=== PATIENT | male | born 1945 | race Caucasian/White ===

== ENCOUNTER 2021-01-04 09:08 | Observation (INO) ==
--- NOTE | 2020-11-23 16:11 | Anesthesiology Consultation ---
Date of Service November 23, 2020 Assessment & Plan (1) Encounter for pre-operative examination: Chart Review Chart Review: Acceptable Risk for Surgery (pending preop Covid testing and DOS CXR ) and Patient NOT seen in Pre Admission Testing - Check coags AM DOS. Will order repeat CXR DOS secondary chest CT findings in Aug 2020 to ensure no current infection. Per nursing assessment 11/23/20, pt did travel to [place] and returned home on 11/13/20- drove and avoided large crowds. Wears mask in public. No known Covid positive contacts or Covid related symptoms. No known Covid infection in the past 90 days. Preop Covid testing 12/02/20= will await results. History Surgery Operation Date: 12/08/20 10:40 Proposed Procedures p Left Total Hip Arthroplasty - Enrrique Boss MD Height/Weight Height: 5 ft 10 in Weight: 106.594 kg Allergies Allergy/AdvReac Type Severity Reaction Status Date / Time No Known Allergies Allergy Verified 11/23/20 13:51 Medications Home Medications Medication Instructions Recorded Confirmed Last Taken 3-in-1 Commode #1 ea 07/02/20 07/02/20 Unknown Wheeled Walker #1 ea 07/02/20 07/02/20 Unknown Wheeled Walker #1 ea 07/02/20 07/02/20 Unknown atorvastatin 10 mg PO PM 07/03/20 11/23/20 Unknown coenzyme Q10 [CoQ-10] 100 mg PO QAM 07/03/20 11/23/20 Unknown warfarin 5 mg PO PM 07/03/20 11/23/20 Unknown triamcinolone acetonide 1 applic TOPICAL DAILY PRN 11/23/20 11/23/20 Unknown Past Medical History Medical History Dyslipidemia Elevated factor VIII level Heterozygous MTHFR mutation [id number] History of COVID-19 06/2020 - asymptomatic History of DVT (deep vein thrombosis) LLE (2005), on warfarin, dx heterozygous MTHFR mutation + elevated factor VIII Myasthenia gravis stable, no current issues Obesity Past Family History Family History Other No family history of adverse response to anesthesia Past Surgical History Surgical History History of colonoscopy History of tooth extraction Social History Smoking Status: Never smoker Do You Dip or Chew Tobacco: No Hx Alcohol Use: No Hx Substance Use: No substance use type: does not use Lab Results Anesthesia Preop Results Results Anesthesia Widget: WBC 5.30 K/uL (4.8-10.8) 11/19/20 Hgb 14.5 g/dL (14.0-18.0) 11/19/20 Hct 43.8 % (42-52) 11/19/20 Plt 151 K/uL (130-400) 11/19/20 Na 140 mmol/L (136-145) 11/19/20 K 4.4 mmol/L (3.5-5.1) 11/19/20 Cl 107 mmol/L (98-107) 11/19/20 CO2 33 mmol/L (21-32) H 11/19/20 BUN 15 mg/dl (7-18) 11/19/20 Creat 0.94 mg/dl (0.6-1.4) 11/19/20 Glucose Level 89 mg/dl (70-99) 11/19/20 PT 24.7 Seconds (9.0-12.0) H 11/19/20 INR 2.6 (0.9-1.1) H 11/19/20 Testing Laboratory Results Blood Type A Positive 11/19/20 10:52 Antibody Screen NEGATIVE 11/19/20 10:52 Electrocardiogram Date: 07/07/20 Findings: + NSR @ (68) Chest X-Ray Date: 07/07/20 Nonspecific subtle nodular opacities within the right mid and lower lung zone. Correlate clinically for evidence of an active inflammatory process. Short-term radiographic follow-up or CT scanning could be obtained in follow-up to exclude an underlying neoplastic process. (See below Chest CT scan on 08/31/20) Other Testing Chest CT 08/31/20= Subtle subsegmental patchy groundglass opacities of the right upper and lower lobes are suspicious for a nonspecific infectious or inflammatory pneumonitis. There are a few scattered low suspicion solid pulmonary nodules of the bilateral lungs as above measuring up to 4 mm. Follow- up guidelines provided below. No adenopathy or pleural effusion. Cardiomegaly with extensive coronary artery calcifications.
--- NOTE | 2021-01-01 00:03 | History and Physical Report ---
DATE OF ADMISSION: 01/04/2021 CHIEF COMPLAINT: Persistent progressive left hip pain and discomfort. HISTORY OF PRESENT ILLNESS: The patient is a 75-year-old gentleman who now presents for surgical treatment of his left hip. He has got a long history of left hip pain and discomfort that has gradually gotten worse over time. He was actually scheduled for hip surgery a couple of times. His first case was canceled as he tested COVID positive. He was rescheduled and then canceled due to bed availability. Hip continues to bother him, it has only gotten worse over time. Total hip pain has been 3+ years. He has got groin pain, thigh pain. Pain increases and gets worse as the day goes on. He has used a cane intermittently to get around due to the pain. He has difficulty putting his shoes and socks on. He would like to have his hip fixed. The patient does have a history of a DVT in 2005 and on chronic Coumadin. There is no known clotting disorder. PAST MEDICAL HISTORY: Significant for, 1. Myasthenia gravis. 2. History of deep venous thrombosis, on Coumadin, with no clotting disorder. ALLERGIES: None. PAST SURGICAL HISTORY: None. CURRENT MEDICINES: Include, 1. Atorvastatin 5 mg daily. 2. Coumadin 5 mg on Monday and Monday and 7.5 mg all other days. SOCIAL HISTORY: A 75-year-old male. He is from [place]. He does not smoke. No significant alcohol intake. FAMILY HISTORY: Noncontributory. REVIEW OF HISTORY: Negative for diabetes, neurologic problems, vascular problems, or bleeding disorders. He does have a history of DVT years ago and on Coumadin. No history of PE. He is moderately obese with a BMI of 35. PHYSICAL EXAMINATION: GENERAL: Shows a pleasant, large, middle-aged male. HEENT: Benign. NECK: Supple, no lymphadenopathy. LUNGS: Clear to auscultation. HEART: Has a regular rate and rhythm. ABDOMEN: Soft, nontender, nondistended. EXTREMITIES: Grossly neurovascularly intact except as follows: Examination of the left hip revealed the patient walks with antalgic gait. Leg lengths appear pretty equal clinically. He does have pain with any type of hip motion and his pelvis rocks with any type of internal rotation. Negative straight leg raise. He has got external rotation contracture of 5 degrees. No knee effusion. X-RAYS: X-rays of the left hip from previously reviewed. It shows advanced left hip DJD. He has got complete loss of his superior joint space. Large medial osteophyte. He has got some flattening of the femoral head and a little bit of subluxation of the joint. ASSESSMENT: A 75-year-old male with advanced left hip degenerative joint disease. He has failed conservative measures. He does have a history of DVT in the past many years ago and on Coumadin, but no known clotting disorder. He has failed conservative measures. He has been scheduled twice and rescheduled and now would like to have his left hip fixed. PLAN: We will take him to the operating room and do a left total hip replacement. The risks and benefits of this procedure were explained to the patient including, but not limited to, DVT, PE, , infection, neurological injury, vascular injury, bleeding problem, pain, limited range of motion, stiffness, failure to relieve symptoms, incomplete relief of symptoms, need for further surgery in the future, fracture, leg length inequality, nerve palsy, etc. The patient understands and desires to proceed. Informed consent was obtained. We did talk to him about holding his Coumadin 5 days preop. He is planning to be discharged to home using [facility] home health program.
[~2021-01-04 09:08] MED LIST: ACETAMINOPHEN 500 MG TAB PO SCH; BUPIVACAINE 0.5 % 5 MG/1 ML PF 10ML VIAL ONE; FAMOTIDINE 20 MG TAB PO SCH; GABAPENTIN 300 MG CAP PO SCH; LR 15ML/HR IV SCH; LR 500ML BOLUS, THEN 15ML/HR IV SCH; LR 60ML/HR IV SCH; METOCLOPRAMIDE HCL 10 MG TABLET PO SCH; ceFAZolin 2000MG 2,000 MG/15 ML SYR IV SCH
[2021-01-04 09:53] LABS: Partial Thromboplastin Ratio 1.2; Partial Thromboplastin Time 30.8 Seconds (21.0-31.0); Prothrombin Time 10.5 Seconds (9.0-12.0)
[2021-01-04] MEDS ORDERED: MIDAZOLAM HCL 1 MG/ML 2ML VIAL ONE (10:32)
[2021-01-04] MEDS ORDERED: MoRPHine SULFATE PF 1 MG/ML 10 ML AMP/VIAL ONE (10:46)
--- NOTE | 2021-01-04 10:50 | XRay Report ---
XR chest 2V PA/lateral CLINICAL HISTORY: PREOP ORDER COMPARISON STUDY: July 07, 2020 FINDINGS: No pneumothorax. Redemonstration of blunting of posterior left costophrenic angle which is unchanged since prior study and might represent small left pleural effusion or pleural thickening. Previously seen patchy opacities at the peripheral aspect of the right mid to lower lung are improved since prior study performed in June 2020. Reticular prominence of pulmonary interstitium is seen in bilateral bases. Cardiomediastinal silhouette is within normal limits in size. No significant pulmonary vascular congestion.. Aorta is tortuous and calcified. Osseous structures: unremarkable IMPRESSION: 1. Reticular prominence of pulmonary interstitium. Interval improvement of patchy opacities at the l ateral aspect of the right lower lobe. 2. Redemonstration of the left pleural effusion/pleural thickening. ACT 112: Negative or not required by law. The above report was generated using voice recognition software. It may contain grammatical, syntax o r spelling errors. Electronically signed by: Vee Hickman DO 01/04/2021 10:49 AM
[2021-01-04] MEDS ORDERED: BUPIVACAINE/EPINEPHRINE 0.5% MPF 1:200,000 30 ML VIAL ONE (11:04)
--- NOTE | 2021-01-04 11:22 | History & Physical Bridge Note ---
Date of Service January 04, 2021 History & Physical Bridge Note I have examined the patient, reviewed the History & Physical and in the interval since the performance of the History & Physical I have noted the following changes of clinical significance: no changes noted
[2021-01-04] MEDS ORDERED: LIDOCAINE 2% 2 ML VIAL/AMP(20MG/ML) INFIL ONE (12:10)
[2021-01-04] MEDS ORDERED: PROPOFOL IV EMULSION 10 MG/ML 20 ML VIAL IV ONE ×2 (12:10→12:30)
--- NOTE | 2021-01-04 13:15 | Operative Report ---
Post Operative Report Pre & Post Diagnosis Operation Date: 01/04/21 11:10 Pre-Op Diagnosis: Left Hip Advanced Degenerative Joint Disease Post-Op Diagnosis: Left Hip Advanced Degenerative Joint Disease I identified the patient and participated in the time-out.: Yes Procedure Operation Date: 01/04/21 11:10 Actual Procedures p Left Total Hip Arthroplasty--Uncemented(Left) - Enrrique Boss MD Surgeon Enrrique Boss MD Tack Driller SHAWN Evans Estimated Blood Loss 200 Findings Consistent with Post-Op Diagnosis Operative findings revealed advanced left hip DJD. Extensive grade 4 [id number] disease of the femoral head and acetabulum. He had large osteophytes around the femoral head and neck area as well as anterior acetabular osteophytes. Large hip joint effusion. Fluids 1200 cc. Specimens Left femoral head sent for pathology. Anesthesia Type Spinal MAC Complications none Disposition Accompanied Patient To Recovery: Yes Indications Patient is a 75-year-old very active gentleman said a long history of increasing left hip and thigh and leg pain and discomfort describes gotten worse over time. Failed conservative measures. X-rays show advanced left hip DJD. He elected to proceed with surgical treatment. Of note, has been previously scheduled for surgery but canceled due to Covid. He is now Covid minus/negative Description of Procedure Operative implants consisted of: 1. Biomet G7 size 60 mm acetabular shell. 2. 6.5 cancellous acetabular screws 135 mm length 130 mm length. 3. [place] hole ruling technician. 4. Highly cross-linked polyethylene liner with a 60 mm outer diameter and 40 mm inner diameter. 5. Faby Karaya size 14 KLA femoral stem. 6. +5/40 mm ceramic articular ball. Patient was taken to the operating room, identified, and placed on the operating table supine position but all contact areas were properly padded. IV antibiotics tried by anesthesia team. A spinal anesthetic had been implemented holding area. Rosario catheter was placed in sterile fashion. Patient then placed in the right lateral decubitus position. An axillary roll was placed. A Stulberg hip positioner was used for positioning. The left hip and leg were then prepped and draped in usual sterile fashion. A posterior lateral approach to the left hip was then performed to a curvilinear incision centered over the greater trochanter. Sharp dissection got through subcutaneous tissue down to the IT band gluteal fascia the IT band gluteal fascia were incised longitudinally in line with skin incision. The underlying greater bursa was excised. There was a lot of fat beneath the IT band which was just left in place. The posterior capsule and external rotators were then identified and released from the posterior aspect hip joint as a single layer. Great care was taken throughout the procedure protect the sciatic nerve at all times. Hip was internally rotated and dislocated. A femoral neck osteotomy cut was made with Final Cut 15 mm above the lesser trochanter. Femoral head was removed and sent for pathology. The femur was retracted anteriorly. Attention drawn the acetabulum. The acetabular labrum was excised. The pulmonary fat was excised. Sequential reaming the acetabulum then performed begin with size 51 and progressing up to 59. I did reamed a little bit with a 60 reamer and then placed a 60 cup. The cup was placed in about 40 degrees of lateral opening and 20 degrees of anteversion. A small anterior osteophyte off the acetabular was removed. Trial liner was placed. Attention drawn the femur. The proximal femur was entered with a cookie-cutter followed by canal finder. I then broached begin the size 8 and progressing up to 14. Got excellent fit of 14. Calcar reamer was used smooth and off the calcar. Then trialed the hip and the hip was perfectly stable to the +5 articular ball and the 40 had. It was stable in full extension and external rotation flexion to 9 degrees internal rotation over 50 degrees. Attention drawn to placing permanent components. All trial components were removed. A apex hole ruling technician was placed. Highly cross-linked polyethylene liner was placed. A DePuy size 14 KLA femoral stem was impacted in position. +5/40 mm ceramic articular ball was placed. Hip was located once again found to be stable. Attention drawn toward closing. Nupathe wounds irrigated scope soft pulsatile lavage solution. I did inject locally with 60 cc of half percent Marcaine with epinephrine. The posterior capsule and external rotators were repaired through drill holes in the posterior trochanter as a single layer. The IT band gluteal fascia then closed in 1 PDS suture in running fashion the subcutaneous tissues then closed in 2 layers with a deep layer #2 Vicryl suture in the subcu tissues with 2-0 Dexon suture in a buried interrupted fashion. Skin was closed skin gregg. Legs then cleaned dried a sterile dressing both Xeroform, 4 x 4's, ABD pad and foam tape was applied. Patient then transferred to the recovery room in stable condition. Patient tolerated the procedure well and there are no complications. Garret Evans, my physician assistant general manager, was present for the entire procedure. His assistance was essential and required for appropriate patient positioning, prepping and draping, surgical exposure, performing the technical details of the operation, placement the implants, closure of the wound, and placement of the sterile bandage. I attest to the content of the Intraoperative Record and any orders documented therein. Any exceptions are noted below.
[2021-01-04] MEDS ORDERED: TRIAMCINOLONE ACET 0.1% CR 15 GM TUBE TOP PRN (14:21)
[2021-01-04] MEDS ORDERED: bisacodyL 10 MG SUPP PR PRN (14:21)
[2021-01-04] MEDS ORDERED: MAGNESIUM HYDROXIDE SUSP 30 ML UDC PO PRN (14:21)
[2021-01-04] MEDS ORDERED: TAMSULOSIN HCL 0.4 MG CAP PO PRN (14:21)
[2021-01-04] MEDS ORDERED: NALOXONE HCL 0.4 MG/1 ML VIAL/CARP IV PRN (14:21)
[2021-01-04] MEDS ORDERED: ALUMINUM/MAGNESIUM SUSP 30 ML UDC PO PRN (14:21)
[2021-01-04] MEDS ORDERED: HYDROmorphone INJ 0.5 MG/0.5 ML SYR IV PRN (14:21)
[2021-01-04] MEDS ORDERED: traMADol HCL 50 MG TABLET PO PRN (14:21)
--- NOTE | 2021-01-04 14:41 | Anesthesiology Progress Note ---
Date of Service January 04, 2021 Anesthesia Post Procedure Vital Signs Vital Signs: Temp Pulse Pulse Resp BP Pulse Ox 01/04/21 14:37 85 18 169/81 H 93 01/04/21 14:05 36.5 C 80 18 150/75 H 97 01/04/21 13:40 80 18 137/58 L 97 01/04/21 13:30 78 14 120/62 98 01/04/21 13:20 77 14 130/60 98 01/04/21 13:10 36.3 C L 82 16 116/53 L 92 01/04/21 10:07 177/92 H 01/04/21 09:24 36.5 C 68 18 194/86 H 97 Transfer of Care Handoff Completed per policy Notes Mental Status: alert / awake / arousable Patient Amnestic to Procedure: Yes Nausea / Vomiting: adequately controlled Pain: adequately controlled Airway Patency, RR, SpO2: stable & adequate BP & HR: stable & adequate Hydration State: stable & adequate Neuraxial Anesthesia: was administered and sensory block is resolving Anesthetic Complications: no major complications apparent
[2021-01-04] MEDS: SODIUM CHLORIDE 0.9% 1,000 ML IV SCH ×2 (14:43→21:23)
[2021-01-04] MEDS: ONDANSETRON INJ 2 MG/ML 2 ML VIAL IV PRN (14:43)
[2021-01-04] MEDS: ACETAMINOPHEN 500 MG TAB PO SCH ×2 (14:43→21:23)
--- NOTE | 2021-01-04 15:02 | XRay Report ---
XR hip 1V LT w pelvis CLINICAL HISTORY: IN PACU - A/P PELVIS and LATERAL HIP COMPARISON: July 02, 2020 DISCUSSION: Interval placement of left prosthetic hip joint. Soft tissue emphysema and skin gregg are seen. IMPRESSION: Postoperative changes as above. ACT 112: Negative or not required by law. The above report was generated using voice recognition software. It may contain grammatical, syntax o r spelling errors. Electronically signed by: Vee Hickman DO 01/04/2021 3:01 PM
[2021-01-04] MEDS ORDERED: WARFARIN SOD 10 MG TAB PO ONE (16:00)
[2021-01-04] MEDS: ASCORBIC ACID 500 MG TAB PO SCH (16:02)
[2021-01-04] MEDS: KETOROLAC TROMETHAMINE 15 MG/ML VIAL IV SCH ×2 (17:27→23:39)
[2021-01-04] MEDS: METOCLOPRAMIDE HCL INJ 5 MG/ML 2 ML VIAL IV PRN (20:13)
[2021-01-04] MEDS: ceFAZolin 2000MG 2,000 MG/15 ML SYR IV SCH (20:13)
[2021-01-04] MEDS ORDERED: SENNA 8.6 MG TAB PO SCH (21:00)
[2021-01-04] MEDS ORDERED: ATORVASTATIN 10 MG TAB PO SCH (21:00)
[2021-01-04] MEDS: DOCUSATE SODIUM 100 MG CAP PO SCH (21:23)
[2021-01-05] MEDS: ceFAZolin 2000MG 2,000 MG/15 ML SYR IV SCH (04:06)
[2021-01-05] MEDS: SODIUM CHLORIDE 0.9% 1,000 ML IV SCH (04:06)
[2021-01-05] MEDS: ACETAMINOPHEN 500 MG TAB PO SCH ×2 (05:51→14:49)
[2021-01-05] MEDS: KETOROLAC TROMETHAMINE 15 MG/ML VIAL IV SCH ×2 (05:51→11:40)
[2021-01-05] MEDS: ONDANSETRON INJ 2 MG/ML 2 ML VIAL IV PRN (05:54)
[2021-01-05 07:33] LABS: Hematocrit (blood only) 34.6 % (42-52); Hemoglobin 11.4 g/dL (14.0-18.0); Immature Granulocytes # (auto) 0.01 K/uL (0.00-0.02); Immature Granulocytes % (auto) 0.2 %; Lymphocytes # (auto) 0.54 K/uL (1.2-3.4); Lymphocytes % (auto) 9.8 %; Mean Corpuscular Hemoglobin 29.8 pg (25-34); Mean Corpuscular Hgb Conc 32.9 g/dL (32-36); Mean Corpuscular Volume 90.3 fL (80-100); Mean Platelet Volume 10.9 fL (7.4-10.4); Monocytes # (auto) 0.45 K/uL (0.11-0.59); Monocytes % (auto) 8.2 %; Neutrophils # (auto) 4.51 K/uL (1.4-6.5); Neutrophils % (auto) 81.8 %; Platelet Count 117 K/uL (130-400); RDW Coefficient of Variation 13.2 % (11.5-14.5); RDW Standard Deviation 44.1 fL (36.4-46.3); Red Blood Count 3.83 M/uL (4.7-6.1); White Blood Count 5.51 K/uL (4.8-10.8)
[2021-01-05 07:42] LABS: INR 1.1 (0.9-1.1); Prothrombin Time 11.4 Seconds (9.0-12.0)
[2021-01-05 07:55] LABS: BUN Creatinine Ratio 17.7 (10-20); Calcium 7.8 mg/dl (8.5-10.1); Creatinine Clr Calc Pharmacy 101.4 ml/min; Est GFR (African American) 102.7 ml/min; Est GFR (Non-African American) 88.6 ml/min; Potassium 4.2 mmol/L (3.5-5.1)
[2021-01-05] MEDS ORDERED: MULTIVITAMIN TAB PO SCH (09:00)
[2021-01-05] MEDS ORDERED: NON-FORMULARY MEDICATION (Coenzyme Q10 [Coq-10] 100 mg Capsule) PO SCH (09:00)
[2021-01-05] MEDS: ASCORBIC ACID 500 MG TAB PO SCH (09:19)
[2021-01-05] MEDS: DOCUSATE SODIUM 100 MG CAP PO SCH (09:19)
[2021-01-05] MEDS: METOCLOPRAMIDE HCL INJ 5 MG/ML 2 ML VIAL IV PRN (10:31)
[2021-01-05] MEDS ORDERED: WARFARIN SOD 7.5 MG TAB PO ONE (15:11)
--- NOTE | 2021-01-05 15:41 | Progress Notes ---
DATE: 01/05/2021 SUBJECTIVE: A 75-year-old gentleman postop day 1 from a left hip replacement. He is doing pretty well. Really not having much pain. Did get a little dizzy when he got up earlier today, but says gotten up since then without problems. No chest pain or shortness of breath. Not feeling dizzy or lightheaded. OBJECTIVE: VITAL SIGNS: Temperature is 36.9. Vital signs stable. GENERAL: Shows a pleasant elderly male. He is sitting up in bed, looks pretty comfortable this afternoon. LUNGS: Clear to auscultation. HEART: Has a regular rate and rhythm. ABDOMEN: Soft, nontender, nondistended. EXTREMITIES: Grossly neurovascularly intact except as follows. Examination of left hip and leg reveals the dressing to be clean, dry and intact. Leg lengths are equal. He can dorsiflex and plantarflex his foot appropriately. He is neurologically intact. LABORATORY DATA: Hemoglobin 11.4. Hematocrit 34.6. Electrolytes are stable. ASSESSMENT: A 75-year-old gentleman postop day 1 from a left hip replacement, doing pretty well. Pain is controlled. He has got a little dizzy when he got up earlier, but doing better now. He feels okay to go home. PLAN: 1. DVT prophylaxis including thigh-high TEDs, SCDs, and back on his Coumadin. We will load him with Coumadin and will get a dose before he goes today. 2. PT/OT. Weight bear as tolerated. Left total hip protocol. 3. Pain control, doing okay with current pain regimen. 4. Disposition: Plan to discharge to home with some home health later today.
--- NOTE | 2021-01-09 07:16 | Discharge Summary ---
Date of Service January 09, 2021 Discharge Data Procedures Performed Operation Date: 01/04/21 11:10 Actual Procedures p Left Total Hip Arthroplasty--Uncemented(Left) - Enrrique Boss MD Hospital Course (1) Status post total hip replacement, left: This patient is a 75 year old admitted on 01/04/21 and underwent total hip arthroplasty. He tolerated the procedure well and there were no complications. Transferred to the PACU post op and later to the orthopedic floor for further care. He was given ancef for antibiotic prophylaxis. He was also given DOMINIQUE stockings, SCDs, and coumadin for DVT prophylaxis. Hemoglobin, hematocrit, and vital signs were monitored during his hospital stay and remained stable. Did not require any blood transfusions. There were no complications during his hospital stay. By post op day #1 the patient was tolerating a regular diet, pain was reasonably controlled with oral pain medicine, and he was participating in physical therapy. On post op day #1 the patient was discharged home and set up with home health care. He was given printed discharge instructions including prescriptions for extra strength tylenol and tramadol. Continue physical therapy, weight bearing as tolerated. Continue hip precautions. Continue DOMINIQUE stockings. Follow up approximately 2 weeks post op or sooner if there are problems or concerns. Coding Level of Care Code None Diagnoses Status post total hip replacement, left Z96.642
== END 2021-01-05 16:55 | disposition home health service (06) ==
LOC: ASU 09:08 → 3E 09:08